=== PATIENT | female | born 1950 | race Caucasian/White ===

== ENCOUNTER 2021-03-31 07:42 | Emergency (ER) | payer MEDICARE ==
[~2021-03-31] VITALS: Ht 160 cm; Wt 77.1 kg
[2021-03-31] MEDS ORDERED: LOSARTAN POTASS25 M2 PO (08:47)
[2021-03-31] MEDS ORDERED: GLIMEPIRIDE1 M2 PO (08:48)
[2021-03-31] MEDS ORDERED: METFORMIN HCL500 M2 PO (08:48)
[2021-03-31] MEDS ORDERED: Amaryl1 MG PO (08:48)
== END 2021-03-31 09:30 | disposition home or self-care (01) ==
LOC: ER 07:42
DX: M25.552 Pain in left hip (principal); E11.9 Type 2 diabetes mellitus without complications; Z88.5 Allergy status to narcotic agent; Z79.84 Long term (current) use of oral hypoglycemic drugs; Z79.899 Other long term (current) drug therapy
CPT/HCPCS: 73502; 99283-25

== ENCOUNTER 2021-12-31 09:20 | Day surgery (SDC) | payer MEDICARE ==
[~2021-12-31] VITALS: Ht 160 cm; Wt 79.2 kg
[~2021-12-31 09:20] MED LIST: Amaryl1 MG PO; GLIMEPIRIDE1 M2 PO; LOSARTAN POTASS25 M2 PO; METFORMIN HCL500 M2 PO
--- NOTE | 2021-12-31 09:43 | NUR ---
12/31/21 0943 Luis Daniel Hancock TETRACAINE APPLIED PER ORDERS TO RIGHT EYE AT 0937 AND PLEDGET AT 0938
== END 2021-12-31 11:07 | disposition home or self-care (01) ==
LOC: ORSCSDS 09:20
PROVIDERS: Ophthalmology
PROC: 08RJ3JZ Replacement of Right Lens with Synthetic Substitute, Percutaneous Approach (ICD-10-PCS; principal; 2021-12-31 10:30)
DX: H25.11 Age-related nuclear cataract, right eye (principal); E11.9 Type 2 diabetes mellitus without complications; K21.9 Gastro-esophageal reflux disease without esophagitis; Z79.84 Long term (current) use of oral hypoglycemic drugs; Z79.899 Other long term (current) drug therapy
CPT/HCPCS: 82947; J2001; J2250; J3010; J3301; J7040; V2632

== ENCOUNTER 2022-09-28 06:49 | Day surgery (SDC) | payer MEDICARE ==
[~2022-09-28] VITALS: Ht 160 cm; Wt 78.4 kg
[2022-09-28] MEDS ORDERED: GLIM2 PO (07:15)
[2022-09-28] MEDS ORDERED: KRILL OIL 1,001 EACH PO (07:16)
[2022-09-28] MEDS ORDERED: PANT40 (07:17)
[2022-09-28] MEDS ORDERED: Calcium Acetat667 MG PO (07:17)
[2022-09-28] MEDS ORDERED: MAGCHL64ER (07:18)
[2022-09-28] MEDS ORDERED: ZINC15 PO (07:18)
[2022-09-28] MEDS ORDERED: DICL75ER PO (07:44)
--- NOTE | 2022-09-28 08:08 | NUR ---
09/28/22 0808 LAZARUS RUSSELL TOOK PT BACK TO OR UNDER RN PÉREZ MACK SIGN IN
== END 2022-09-28 08:52 | disposition home or self-care (01) ==
LOC: ORSCSDS 06:49
PROVIDERS: Orthopaedic Surgery
PROC: 01N50ZZ Release Median Nerve, Open Approach (ICD-10-PCS; principal; 2022-09-28 08:00)
DX: G56.03 Carpal tunnel syndrome, bilateral upper limbs (principal); E11.9 Type 2 diabetes mellitus without complications; H35.00 Unspecified background retinopathy; Z79.84 Long term (current) use of oral hypoglycemic drugs; Z79.899 Other long term (current) drug therapy
CPT/HCPCS: 82947; J0690; J2250; J3010; J7120

== ENCOUNTER 2023-04-28 06:44 | Day surgery (SDC) | payer MEDICARE ==
[~2023-04-28] VITALS: Ht 160 cm; Wt 75.8 kg
[~2023-04-28 06:44] MED LIST changes: +Calcium Acetat667 MG PO; +DICL75ER PO; +GLIM2 PO; +KRILL OIL 1,001 EACH PO; +MAGCHL64ER; +PANT40; +ZINC15 PO
--- NOTE | 2023-04-28 07:09 | NUR ---
04/28/23 0709 Rebeca Spangler AT 0702 PLEDGET AT 0704
[2023-04-28 08:28] VITALS: BP 91/61
== END 2023-04-28 08:46 | disposition home or self-care (01) ==
LOC: ORSCSDS 06:44
PROVIDERS: Ophthalmology
PROC: 08DK3ZZ Extraction of Left Lens, Percutaneous Approach (ICD-10-PCS; principal; 2023-04-28 08:00)
DX: E11.36 Type 2 diabetes mellitus with diabetic cataract (principal); E11.3553 Type 2 diabetes mellitus with stable proliferative diabetic retinopathy, bilateral; Z96.1 Presence of intraocular lens; H35.051 Retinal neovascularization, unspecified, right eye; H25.12 Age-related nuclear cataract, left eye; I10 Essential (primary) hypertension; Z79.84 Long term (current) use of oral hypoglycemic drugs; Z79.899 Other long term (current) drug therapy
CPT/HCPCS: 82947; J2001; J2250; J3010; J3301; J7040; V2632

== ENCOUNTER 2023-08-11 10:14 | Inpatient (IN) | payer MEDICARE ==
[2023-08-11] VITALS (45 sets, daily range): BP systolic 88–143; BP diastolic 50–113
[~2023-08-11] VITALS: Ht 167.6 cm; Wt 74.9 kg
[2023-08-11 10:30] LABS: Calcium, Ionized (POC) 1.15 mmol/L (1.10-1.46); Chloride (POC) 105 mmol/L (98-108); Creatinine (POC) 0.9 mg/dL (0.6-1.0); Glucose (ISTAT POC) 124 mg/dL (70-99); Hemoglobin (POC) 11.9 g/dL (12.0-16.0); Potassium (POC) 3.9 mmol/L (3.5-5.5); Sodium (POC) 140 mmol/L (135-148); Total CO2 (POC) 23 mmol/L (21-32)
[2023-08-11 10:34] LABS: BASOPHILS ABSOLUTE AUTO 0.02 K/mm3 (0.00-0.23); BASOPHILS PERCENT AUTO 0 % (0-2); EOSINOPHILS ABSOLUTE AUTO 0.24 K/mm3 (0.00-0.68); EOSINOPHILS PERCENT AUTO 4 % (0-6); Hematocrit 34.3 % (33.0-51.0); Hemoglobin 11.7 g/dL (11.5-16.0); IMMATURE GRAN ABSOLUTE AUTO 0.01 K/mm3 (0.00-0.10); IMMATURE GRAN PERCENT AUTO 0 % (0-1); LYMPHOCYTES ABSOLUTE AUTO 1.92 K/mm3 (0.84-5.20); LYMPHOCYTES PERCENT AUTO 34 % (21-46); MONOCYTES ABSOLUTE AUTO 0.57 K/mm3 (0.16-1.47); MONOCYTES PERCENT AUTO 10 % (4-13); Mean Corpuscular HGB Conc 34.1 g/dL (31.5-36.5); Mean Corpuscular Volume 88 fL (80-100); Mean Platelet Volume 10.3 fL (9.1-12.4); NEUTROPHILS PERCENT AUTO 51 % (41-73); Platelet Count 247 K/mm3 (150-400); RDW Coefficient Variation 13.1 % (11.7-14.2); RDW Standard Deviation 42.1 fL (35.1-46.3); White Blood Cell Count 5.66 K/mm3 (4.00-11.30)
[2023-08-11 10:49] LABS: International Normalized Ratio 1.04; Prothrombin Time Results 10.9 Sec (9.7-11.5)
[2023-08-11 10:55] LABS: Alanine Aminotransfer (ALT/SGP 28 U/L (12-78); Albumin, Blood 3.7 g/dL (3.4-5.0); Albumin/Globulin Ratio 1.2 (0.8-1.8); Alk Phos 56 U/L (50-136); Anion Gap 4 mmol/L (6-16); Aspartate Aminotrans (AST/SGOT 15 U/L (12-37); Bilirubin, Total 0.4 mg/dL (0.1-1.0); Blood Urea Nitrogen 26 mg/dL (8-24); Bun/Creatinine Ratio 27.9 (12.0-20.0); CHOL/HDL RATIO 5.8; CO2, Blood 26 mmol/L (21-32); Calcium, Blood 9.1 mg/dL (8.5-10.1); Chloride, Blood 109 mmol/L (98-108); Cholesterol 193 mg/dL (50-200); Creatinine, Blood 0.93 mg/dL (0.40-1.00); Globulin, Blood 3.2 g/dL (2.2-4.0); Glomerular Filtration Rate 65 (60-); Glucose, Blood 136 mg/dL (70-99); HDL Cholesterol 33 mg/dL (>39); LDL/HDL RATIO 3.6; Low Density Lipoprotein Chol 119 mg/dL (0-110); Magnesium, Blood 2.2 mg/dL (1.6-2.4); Sodium, Blood 139 mmol/L (136-145); Total Protein, Blood 6.9 g/dL (6.4-8.2); Triglycerides 203 mg/dL (30-160); Very Low Density Lipoprot Chol 40 mg/dL (6-32)
[2023-08-11] MEDS ORDERED: NAPR500 PO (12:56)
[2023-08-11] MEDS ORDERED: MAGNESIUM OXID500 MG PO (13:03)
[2023-08-11] MEDS ORDERED: COQ1050 MG PO (13:03)
[2023-08-11] MEDS ORDERED: C COMPLEX1000 M1 PO (13:08)
--- NOTE | 2023-08-11 13:32 | NUR ---
ASSUMPTION OF CARE PATIENT TO ROOM VIA HOSPITAL BED AT 1236. PT ALERT AND ORIENTED, ABLE TO MAKE NEEDS KNOWN, FOLLOWS COMMANDS, ANSWERS QUESTIONS APPROPRIATELY. HR 70-80'S ACCELERATED JUNCTIONAL RHYTHM PER EKG REPORT, MAP >65. CONTINUOUS CARDIAC MONITORING IN PLACE. OXYGEN SATURATION >90% ON RA. PIV TO RAC. TR BAND IN PLACE TO RW WITH 12MLS WITH PALPABLE PULSE. PT COMPLAINS OF NECK PAIN, HEATING PAD IN PLACE. PT DENIES CHEST PAIN. FAMILY AT BEDSIDE.
--- NOTE | 2023-08-11 18:15 | NUR ---
SHIFT SUMMARY PT RESTING IN BED. ALERT AND ORIENTED X4. HR 70-80'S SR, MAP > 65. TR BAND REMOVED, HEPARIN INFUSING AT 12UNITS/KG/HR PER PHARMACY ORDERS. PT UP TO BEDSIDE TOILET TO VOID, TOLERATED WELL. PT DENIES ANY CHEST PAIN OR DISCOMFORT. PIV TO LAC AND RAC.
--- NOTE | 2023-08-11 20:00 | NUR ---
ASSUMED CARE OF PT AT 1900. REPORT RECEIVED AT BEDSIDE. PT PRESENTS IN BED. ALERT AND ORIENTED. PLEASANT AND COOPERATIVE WITH CARE AND ASSESSMENT. DENIES CHEST PAIN OR PRESSURE. NO VERTIGO. PT ABLE TO MOVE ABOUT IN BED ON HER OWN. WILL ASSIST NEEDED. PT HAS TR BAND OFF. RADIAL SITE RIGHT SIDE WITH OPSITE. NO HEMATOMA OR OOZING TO NOTE. WILL REVIEW CHART AND PLAN OF CARE FOR THIS PT.
[2023-08-12] VITALS (14 sets, daily range): BP systolic 106–134; BP diastolic 58–80
--- NOTE | 2023-08-12 00:02 | NUR ---
PT HAS BEEN UP TO TOILET WITH STANDBY ASSIST. DID DO ORTHOSTATIC BLOOD PRESSURES WITH THIS. NO VERTIGO, UNSTEADINESS, CHEST PAIN OR PRESSURE DURING THIS. SEE VS FLOWSHEET FOR DETAILS OF PRESSURES AND HEART RATE. PT VOIDS Q.S. WILL CONTINUE TO MONITOR PT,
[2023-08-12 04:26] LABS: BASOPHILS ABSOLUTE AUTO 0.03 K/mm3 (0.00-0.23); BASOPHILS PERCENT AUTO 0 % (0-2); EOSINOPHILS ABSOLUTE AUTO 0.09 K/mm3 (0.00-0.68); EOSINOPHILS PERCENT AUTO 1 % (0-6); Hematocrit 33.1 % (33.0-51.0); IMMATURE GRAN ABSOLUTE AUTO 0.03 K/mm3 (0.00-0.10); IMMATURE GRAN PERCENT AUTO 0 % (0-1); LYMPHOCYTES ABSOLUTE AUTO 1.36 K/mm3 (0.84-5.20); LYMPHOCYTES PERCENT AUTO 15 % (21-46); MONOCYTES ABSOLUTE AUTO 0.72 K/mm3 (0.16-1.47); MONOCYTES PERCENT AUTO 8 % (4-13); Mean Corpuscular HGB 29.5 pg (26.0-34.0); Mean Corpuscular HGB Conc 33.2 g/dL (31.5-36.5); Mean Corpuscular Volume 89 fL (80-100); Mean Platelet Volume 10.8 fL (9.1-12.4); NEUTROPHILS ABSOLUTE AUTO 6.63 K/mm3 (1.96-9.15); NEUTROPHILS PERCENT AUTO 75 % (41-73); Platelet Count 243 K/mm3 (150-400); RDW Coefficient Variation 13.2 % (11.7-14.2); RDW Standard Deviation 42.6 fL (35.1-46.3); Red Blood Cell Count 3.73 M/mm3 (3.80-5.20); White Blood Cell Count 8.86 K/mm3 (4.00-11.30)
[2023-08-12 04:47] LABS: Anion Gap 4 mmol/L (6-16); Blood Urea Nitrogen 23 mg/dL (8-24); Bun/Creatinine Ratio 28.9 (12.0-20.0); CO2, Blood 24 mmol/L (21-32); Calcium, Blood 8.2 mg/dL (8.5-10.1); Chloride, Blood 109 mmol/L (98-108); Cholesterol 169 mg/dL (50-200); Glomerular Filtration Rate 77 (60-); Glucose, Blood 161 mg/dL (70-99); HDL Cholesterol 34 mg/dL (>39); Low Density Lipoprotein Chol 103 mg/dL (0-110); Magnesium, Blood 1.9 mg/dL (1.6-2.4); Potassium, Blood 3.9 mmol/L (3.5-5.5); Sodium, Blood 137 mmol/L (136-145); Triglycerides 158 mg/dL (30-160); Very Low Density Lipoprot Chol 31 mg/dL (6-32)
--- NOTE | 2023-08-12 05:27 | NUR ---
PT HAS BEEN STATUS CHANGED TO PCU. WILL REMAIN IN ICU UNTIL BED IS AVAILABLE. PT CONTINUES WITHOUT CHEST PAIN. DID HAVE SHORT PERIOD OF TIME WHERE SHE FELT SOME DYSPNEA WHICH RESOLVED WITH ELEVATING THE BED. PT WAS 97-98 PERCENT SATURATED AT THIS TIME. CONTINUES ON HEPARIN DRIP PER PHARMACY. NO S/S BLEED. WILL CONTINUE TO MONITOR PT, AND WILL REPORT OFF TO ONCOMING RN.
--- NOTE | 2023-08-12 07:00 | NUR ---
ASSUME CARE: I have assumed care of this patient.
--- NOTE | 2023-08-12 11:56 | NUR ---
"Spiritual Care | Pt. Request Pt. is awake in bed and welcomes my visit. Pts. father (step father or SE) is present. Pt. is pleasant. Facilitate a life review and consider matters of moises and belief. Pt. displays evidence of gratitude and hope for the work of the medical team and for God who used them to address her serious blockages. Prayed with Pt. and family. Pt. verbalized gratitude for the spiritual care visit."
[2023-08-12] MEDS ORDERED: ASPI81CH PO (12:04)
[2023-08-12] MEDS ORDERED: ATOR80 PO (12:04)
[2023-08-12] MEDS ORDERED: METO25ER PO (12:05)
[2023-08-12] MEDS ORDERED: TICA90TA PO (12:06)
--- NOTE | 2023-08-12 12:51 | NUR ---
DISCHARGE: Pt discharged home with family. Pt and family provided verbal discharge instructions and return precautions. Pt received paper instructions. She verbalized understanding and agreement. IVs removed by IT APPLICATION ARCHITECT. Pt wheeled out of ICU via wheelchair.
== END 2023-08-12 12:51 | disposition home or self-care (01) | DRG 246 ==
LOC: ER 10:14 → ICUE 11:00
PROVIDERS: Student in an Organized Health Care Education/Training Program; ADMIT Hospitalist
PROC: 027236Z Dilation of Coronary Artery, Three Arteries with Three Drug-eluting Intraluminal Devices, Percutaneous Approach (ICD-10-PCS; principal; 2023-08-11)
PROC: B2111ZZ Fluoroscopy of Multiple Coronary Arteries using Low Osmolar Contrast (ICD-10-PCS; 2023-08-11)
PROC: 4A023N7 Measurement of Cardiac Sampling and Pressure, Left Heart, Percutaneous Approach (ICD-10-PCS; 2023-08-11)
PROC: B241ZZ3 Ultrasonography of Multiple Coronary Arteries, Intravascular (ICD-10-PCS; 2023-08-11)
DX: I21.3 ST elevation (STEMI) myocardial infarction of unspecified site (principal); R57.0 Cardiogenic shock; E11.9 Type 2 diabetes mellitus without complications; I10 Essential (primary) hypertension; R00.1 Bradycardia, unspecified; E78.5 Hyperlipidemia, unspecified; D64.9 Anemia, unspecified; Z79.84 Long term (current) use of oral hypoglycemic drugs; Z79.899 Other long term (current) drug therapy; Z88.5 Allergy status to narcotic agent; Z90.49 Acquired absence of other specified parts of digestive tract; Z90.89 Acquired absence of other organs; Z98.890 Other specified postprocedural states
CPT/HCPCS: 71045; 76937; 80047; 80048; 80053; 80061; 82947; 83735; 84484; 85014; 85025; 85347; 85520; 85610; 85730; 86850; 86900; 86901; 92978; 93005; 93010; 93306; 93454; 93458; 96374; 96375; 99152; 99153; 99291-25; A9270; C1725; C1753; C1769; C1874; C1887; C1894; C9606; J1644; J2250; J2371; J2405; J3010; J7030; J7050; Q9967

== ENCOUNTER 2024-03-02 09:50 | Day surgery (SDC) | payer MEDICARE ==
[~2024-03-02] VITALS: Ht 160 cm; Wt 72.9 kg
[~2024-03-02 09:50] MED LIST changes: +ASPI81CH PO; +ATOR80 PO; +C COMPLEX1000 M1 PO; +COQ1050 MG PO; +MAGNESIUM OXID500 MG PO; +METO25ER PO; +NAPR500 PO; +Ropivacaine 0.5% HCl/Pf 5 MG/ML 20ML VIAL ONE; +TICA90TA PO
[2024-03-02] MEDS ORDERED: NS 50 ML IV ONE (10:10)
[2024-03-02] MEDS ORDERED: CeFAZolin Sodium 2,000 MG VIAL ONE (10:10)
[2024-03-02] MEDS ORDERED: CLOP75 PO (10:16)
[2024-03-02] MEDS ORDERED: MERIBIN5 MG PO (10:18)
[2024-03-02] MEDS ORDERED: Lactated Ringer's 1,000 ML IV ONE (10:28)
[2024-03-02] MEDS ORDERED: FentaNYL Citrate 50 MCG/ML 2 ML Injection ONE (11:26)
[2024-03-02] MEDS ORDERED: propofoL 20 ML IV ONE (11:26)
[2024-03-02] MEDS ORDERED: EPINEPhrine HCl 1 MG/ML 1ML Amp XX ONE (11:46)
[2024-03-02] MEDS ORDERED: Dexamethasone Sod Phos 10 MG/ML 1ML VIAL ONE ×2 (11:56→12:00)
[2024-03-02 13:00] VITALS: BP 134/57
== END 2024-03-02 13:28 | disposition home or self-care (01) ==
LOC: ORSCSDS 09:50
PROVIDERS: Podiatrist Foot & Ankle Surgery
PROC: 0YP90YZ Removal of Other Device from Right Lower Extremity, Open Approach (ICD-10-PCS; principal; 2024-03-02 11:45)
DX: T84.84XA Pain due to internal orthopedic prosthetic devices, implants and grafts, initial encounter (principal); I10 Essential (primary) hypertension; I25.2 Old myocardial infarction; E11.9 Type 2 diabetes mellitus without complications; Z79.02 Long term (current) use of antithrombotics/antiplatelets; Z79.84 Long term (current) use of oral hypoglycemic drugs; Z79.899 Other long term (current) drug therapy
CPT/HCPCS: 82947; J0171; J0690; J1100; J2704; J2795; J3010

== ENCOUNTER 2024-08-31 06:20 | Day surgery (SDC) | payer MEDICARE ==
[~2024-08-31] VITALS: Ht 160 cm; Wt 74.3 kg
[~2024-08-31 06:20] MED LIST changes: +CLOP75 PO; -KRILL OIL 1,001 EACH PO; +KRILL OIL500 MG PO; +MERIBIN5 MG PO; -Ropivacaine 0.5% HCl/Pf 5 MG/ML 20ML VIAL ONE
[2024-08-31] MEDS ORDERED: CeFAZolin Sodium 2,000 MG VIAL ONE (06:30)
[2024-08-31] MEDS ORDERED: NS 50 ML IV ONE (06:30)
[2024-08-31] MEDS ORDERED: Lactated Ringer's 1,000 ML IV ONE ×3 (06:30→09:42)
[2024-08-31] MEDS ORDERED: ACET500 PO (06:56)
[2024-08-31] MEDS ORDERED: MAG GLYCINATE100 MG PO (06:57)
[2024-08-31] MEDS ORDERED: propofoL 20 ML IV ONE ×2 (07:29→09:20)
[2024-08-31] MEDS ORDERED: FentaNYL Citrate 50 MCG/ML 2 ML Injection ONE (07:30)
[2024-08-31] MEDS ORDERED: Bupivacaine 0.5% HCl 5 MG/ML 30MLVIAL INJ ONE ×2 (08:04)
[2024-08-31] MEDS ORDERED: EPINEPhrine HCl 1 MG/ML 1ML Amp XX ONE ×2 (08:05)
--- NOTE | 2024-08-31 08:06 | NUR ---
08/31/24 0806 Kimberli Krause POPLITEALBLOCKPLACED IN OR WITHOUT DIFFICULTY.PT TOLERATED PROCEDURE WELL.
[2024-08-31] MEDS ORDERED: Sugammadex Sodium 200 MG/2ML SDV (100 MG/ML) ONE (08:44)
[2024-08-31] MEDS ORDERED: Rocuronium Bromide 10 MG/ML 5ML Injection IV ONE (08:44)
[2024-08-31] MEDS ORDERED: Ondansetron HCl 2 MG / ML 2ML Vial ONE (08:44)
[2024-08-31] MEDS ORDERED: Metoclopramide HCl 5MG / ML 2ML Vial ONE (08:44)
[2024-08-31 10:08] VITALS: BP 163/70
--- NOTE | 2024-08-31 10:35 | NUR ---
08/31/24 1035 Marianne Yang PT'S DAUGHTERS HERE TO BE WITH HER DURING RECOVERY. PT HAD NO NAUSEA OR PAIN. ONLY COMPLAINT WAS SCRATCHY THROAT.
== END 2024-08-31 10:30 | disposition home or self-care (01) ==
LOC: ORSCSDS 06:20
PROVIDERS: Podiatrist Foot & Ankle Surgery
PROC: 0SGH04Z Fusion of Right Tarsal Joint with Internal Fixation Device, Open Approach (ICD-10-PCS; principal; 2024-08-31 07:30)
DX: M21.41 Flat foot [pes planus] (acquired), right foot (principal); M19.90 Unspecified osteoarthritis, unspecified site; E11.9 Type 2 diabetes mellitus without complications; Z79.84 Long term (current) use of oral hypoglycemic drugs; Z79.899 Other long term (current) drug therapy; Z79.82 Long term (current) use of aspirin
CPT/HCPCS: 82947; C1713; C1734; C1769; J0171; J0690; J2405; J2704; J2765; J3010; J7120